=== PATIENT | male | born 1970 | race Caucasian/White ===

== ENCOUNTER 2024-06-30 01:47 | Emergency (ER) | payer OTHER ==
[2024-06-30 02:09] VITALS: TEMP 98.2; BMI 21.7
[2024-06-30 04:15] LABS: BASO % 0.3 % (0-2.0); EOS % 1.1 % (0-4.5); HEMATOCRIT 45.9 % (35.4-49); HEMOGLOBIN 15.7 GM/dL (11.7-16.9); LYMPH % 15.4 % (8-40); MCH 29.9 pg (25.7-33.7); MCHC 34.2 g/dl (32.0-35.9); MEAN CELL VOLUME 87.5 fl (80-96); MEAN PLT VOLUME 7.7 fl (7.5-11.1); MONO % 8.6 % (3.8-10.2); NEUT % 74.6 % (42.8-82.8); PLATELET COUNT 220 10^3/uL (134-434); RBC 5.25 M/mm3 (4.00-5.60); RDW 14.4 % (11.9-15.9); WHITE BLOOD COUNT 6.6 K/mm3 (4.0-10.0)
[2024-06-30 04:38] LABS: URINE APPEARANCE CLEAR; URINE BILIRUBIN NEGATIVE (NEGATIVE); URINE COLOR YELLOW; URINE GLUCOSE (UA) NEGATIVE (NEGATIVE); URINE KETONE NEGATIVE (NEGATIVE); URINE LEUK ESTERASE NEGATIVE (NEGATIVE); URINE NITRITE NEGATIVE (NEGATIVE); URINE PROTEIN NEGATIVE (NEGATIVE); URINE UROBILINOGEN 0.2 mg/dL (0.2-1.0)
[2024-06-30 04:41] LABS: POTASSIUM 3.8 mmol/L (3.5-5.1)
[2024-06-30 04:42] LABS: CALCIUM 9.3 mg/dL (8.5-10.1)
[2024-06-30 04:46] LABS: CREATININE 0.7 mg/dL (0.55-1.3)
[2024-06-30 04:47] LABS: BILIRUBIN,TOTAL 0.8 mg/dL (0.2-1)
[2024-06-30 04:48] LABS: TOT PROT 7.3 g/dl (6.4-8.2)
[2024-06-30 05:39] VITALS: BP 147/87; PULSE 85; RESP 16
[2024-06-30 06:00] LABS: MAGNESIUM 2.1 mg/dL (1.8-2.4)
== END 2024-06-30 05:41 | disposition home or self-care (01) ==
LOC: JER 01:47
DX: R53.1 Weakness (principal); R07.89 Other chest pain; R35.0 Frequency of micturition; R06.02 Shortness of breath; M79.10 Myalgia, unspecified site; Z20.822 Contact with and (suspected) exposure to COVID-19
CPT/HCPCS: 0241U-QW; 36415; 71046-TC-FY; 80053; 81003; 83735; 84439; 84443; 84484; 85025; 87086; 93005; 93010; 99285-25